=== PATIENT | male | born 1965 | race Caucasian/White ===

== ENCOUNTER 2023-07-14 11:07 | Outpatient (REF) | payer SELFPAY | END 2023-07-14 11:08 | disposition home or self-care (01) | LOC: CF 11:07 | PROVIDERS: Visit Provider Internal Medicine Pulmonary Disease | DX: Z13.89 Encounter for screening for other disorder (principal) ==

== ENCOUNTER 2023-08-10 08:54 | Outpatient (AMB) | payer OTHER, SELFPAY ==
--- NOTE | 2023-08-10 09:04 | MHC.OFFVIS ---
Intake Vital Signs 08/10/23 09:08 Height 6 ft 2 in Weight 206 lb 2.115 oz BMI 26.5 BP 130/70 Blood Pressure Location Rt brachial Position Sitting Pulse 65 Pulse Source Pulse Oximeter Pulse Oximetry (%) 97 Oxygen Delivery Method Room Air Intake Visit Reasons: Shortness of breath Paper Testing Supervisor: Paper Testing Supervisor offered & declined Accompanied by: Self / Same As Patient Allergies No Known Allergies Allergy (Verified 08/10/23 09:13) Medication List - Last Reconciled 08/10/23 by Kenya Wade LPN albuterol sulfate 90 mcg/actuation 2 puffs inhalation Q4-6H PRN HPI Shortness of breath HPI Details Wil is a pleasant 58 year old male, never smoker, with underlying chronic sinusitis and anxiety. [facility]. He reports dyspnea at rest as well as exertion that has been progressively worsening since being in the [employer].He served from [id number]. He also reports intermittent cough, at times productive with clear sputum. He denieschest tightness or wheezing. He has trialed albuterol in the past with suboptimal relief. PCP sent for chest CT which noted mild parenchymal scarring of apices, RML, RLL and lingula, report below. No recent PFT. He reportedly had echo which was normal per referral. Patient notes follow up stress test and nuclear stress test were abnormal, awaiting referral to [facility]. He denies any BLE edema, orthopnea or PND. He is awaiting sleep study, ordered by urologist. He was in the [employer] x 4 years, with multiple unknown exposures, and was stationed at [employer]. 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 He denies any pertinent family history. He denies any seasonal allergies. COUNTS INCLUDE 234 BEDS AT THE [facility] Social History (Updated 08/10/23 @ 09:14 by Kenya Wade LPN) Patient Tobacco Use Status: Never used Tobacco Review of Systems Const Denies chills, Denies excessive sweating, Denies fever(s), Denies headache(s) and Denies night sweats Eyes Denies dry eyes, Denies irritation and Denies itchy eyes ENT Reports Normal hearing present, Denies headache(s), Denies nasal discharge, Denies post nasal drip and Denies sore throat Card Denies chest pain, Denies chest pain at rest, Denies chest pain with activity, Denies claudication, Denies leg edema, Denies orthopnea and Denies paroxysmal nocturnal dyspnea Resp Denies chest congestion, Reports cough, Denies excessive phlegm production, Denies pain on inspiration, Denies pain with cough, Denies stridor and Denies wheezing Musc Denies myalgias Neuro Reports Normal hearing present and Denies headache(s) Endo Denies excessive sweating Jt/Lymph Denies lymphadenopathy Aller/Immun Denies itchy eyes, Denies seasonal rhinorrhea and Denies wheezing Physical Exam Vital Signs: Last Vital Signs Pulse 65 08/10/23 09:08 BP 130/70 08/10/23 09:08 Pulse Ox 97 08/10/23 09:08 Oxygen Delivery Method Room Air 08/10/23 09:08 BMI result Body Mass Index 26.5 Const General: cooperative, healthy appearing, comfortable, no acute distress, well developed and alert Orientation/consciousness: patient oriented x3 Limitations: no limitations HEENT Head: Yes normal to inspection, Yes normocephalic and Yes atraumatic Ears: hearing grossly normal bilaterally and external ears normal Eyes General: appearance normal, both eyes and all related structures Eyelids: Yes eyelids normal Sclerae: sclerae normal EOM: EOMs intact bilaterally Neck Neck: Yes normal visual inspection and Yes no lymphadenopathy Lymphatic: no lymphadenopathy noted Chest Chest palpation & inspection: normal inspection of the chest Resp Effort & Inspection: normal respiratory effort, able to speak in complete sentences, no audible wheezes, no cough, no stridor, not tachypneic, no tripod positioning and no use of accessory muscles Auscultation: clear to auscultation bilaterally Cardio Jugular venous distension: no JVD Rate: regular rate Rhythm: regular rhythm Skin Other: warm, dry General skin exam: no rashes or lesions noted Neuro General: patient oriented x3 Cranial nerves: Yes Normal hearing present Cognition (Neuro): normal cognition Gait exam (Neuro): Normal gait present Extrem General: Yes normal to inspection, Yes capillary refill normal, Yes no clubbing, cyanosis or edema and Yes no pedal edema Psych Appearance: grossly normal and well kempt Speech and movement: Normal speech and movement present and Clear speech present Affect: normal affect Attitude: cooperative Thought process: Normal thought process present Thought content: Normal thought content present Insight: Good insight present (Psych) Judgement: Good judgement present (Psych) Office Procedures 6 Minute Walk Time:: 09:36 SPO2 % at rest: 97 Pulse at rest: 70 SPO2 % during excercise: 96 Pulse during excercise: 88 SPO2 % after excercise: 98 Pulse after excercise: 80 Distance in yards walked: 1,000 Leanne Score: 4 Performance Observations:: Patient walked unassisted on level ground and moderate pace without difficulty. Maintained O2 saturation of 96% or greater with a pulse rate of 84-88 during the entirety of the 6 minutes. Patient did not require supplemental O2. [id number] - 6 Minute Walk Results Reviewed Results Reviewed: Assessment & Plan Assessment & Plan (1) Dyspnea on exertion: Code(s): R06.09 - Other forms of dyspnea Plan Wil presents for evaluation of progressively worsening dyspnea, with or without exertion as well as intermittent cough. It is likely symptoms are related to cardiac contribution, given his reportedly abnormal nuclear stress test. Will attempt to obtain records. However, will send for PFT to evaluate for any obstructive or restrictive defect. CT reviewed which revealed mild parenchymal scarring otherwise no significant abnormalities. 6MWT performed and patient does not require supplemental oxygen at this time. Discussed empirically trialing an inhaler, will hold off until PFT results. All questions were answered and patient is in agreement of plan. Will follow up to review PFT results. Orders: Orders PFT pulmonary function test Today R06.09 - Other forms of dyspnea AMB 6 minute walk Today R06.09 - Other forms of dyspnea Coding Level of Care Code New Pt Level 3 (16107) Diagnoses Dyspnea on exertion R06. CPT Codes Coding ([id number])
[2023-08-10 09:08] VITALS: BP 130/70; PULSE 65; O2SAT 97; BMI 26.5
[2023-08-10 10:13] VITALS: PULSE 70; O2SAT 97
== END 2023-08-10 09:43 | disposition home or self-care (01) ==
PROVIDERS: Visit Provider Nurse Practitioner Family
DX: R06.09 Other forms of dyspnea (principal)
CPT/HCPCS: 94618; 99203

== ENCOUNTER → 2023-08-10 08:54 | Outpatient (BNVA) | payer OTHER, SELFPAY | PROVIDERS: Visit Provider Nurse Practitioner Family | DX: R06.02 Shortness of breath (principal); R06.09 Other forms of dyspnea; J32.9 Chronic sinusitis, unspecified | CPT/HCPCS: 94618; 99202 ==

== ENCOUNTER 2023-09-08 08:45 | Outpatient (REF) | payer OTHER, SELFPAY ==
[2023-09-08 07:56] VITALS: PULSE 66; RESP 16; O2SAT 98
--- NOTE | 2023-09-08 11:35 | PFT_ITS ---
Flows: FEV1: 88 % of predicted at 3.61 L FVC: 79 % of predicted at 4.22 L FEV1/FVC: 86 % Bronchodilator response: Absent Volumes: Total lung capacity: 80 % of predicted at 6.59 L Residual volume: 93 % of predicted at 2.31 L Slow vital capacity: 74 % of predicted at 4.27 L Expiratory reserve volume: 78 % of predicted at 1.28 L Diffusion capacity: Normal Impression: No obstructive or restrictive ventilatory defect. No bronchodilator response. Essentially normal pulmonary function test. MTDD
== END 2023-09-08 08:46 | disposition home or self-care (01) ==
LOC: HO.RESP 08:45
PROVIDERS: PCP Physician Assistant Medical; Visit Provider Nurse Practitioner Family
DX: R06.09 Other forms of dyspnea (principal)
CPT/HCPCS: 94010; 94640; 94727; 94729

== ENCOUNTER → 2023-09-08 11:35 | Outpatient (BNV) | payer OTHER, SELFPAY | PROVIDERS: PCP Physician Assistant Medical; Visit Provider Internal Medicine Pulmonary Disease | DX: R06.09 Other forms of dyspnea (principal) | CPT/HCPCS: 94060; 94727; 94729 ==

== ENCOUNTER 2023-09-21 08:21 | Outpatient (AMB) | payer OTHER, SELFPAY ==
--- NOTE | 2023-09-21 08:24 | A.OFFVIS_ITS ---
Vital Signs 09/21/23 08:25 Height 6 ft 2 in Weight 202 lb 13.204 oz BMI 26.0 Intake Visit Reasons: shortness of breath Allergies No Known Allergies Allergy (Verified 08/10/23 09:13) [facility] Social History (Updated 08/10/23 @ 09:14 by Kenya Wade LPN) Patient Tobacco Use Status: Never used Tobacco Coding
--- NOTE | 2023-09-21 08:24 | MHC.OFFVIS ---
Vital Signs 09/21/23 08:25 Height 6 ft 2 in Weight 202 lb 13.204 oz BMI 26.0 BP 138/76 Blood Pressure Location Rt brachial Position Sitting Pulse 78 Pulse Source Pulse Oximeter Pulse Oximetry (%) 99 Oxygen Delivery Method Room Air Intake Visit Reasons: shortness of breath Allergies No Known Allergies Allergy (Verified 09/21/23 08:31) HPI HPI shortness of breath: Details: Wil is a pleasant 58 year old male, never smoker, with underlying chronic sinusitis and anxiety. He was in the [employer] x 4 years, with multiple unknown exposures, and was stationed at [employer]. Since the last visit, he underwent a cardiac catheterization that was reportedly unremarkable, despite abnormal stress test. He was also sent for PFT and presents to review results today. He continues to report chest tightness with exertion, dry cough and dyspnea on minimal exertion. He has used his albuterol infrequently but reports good relief of symptoms for a short period of time after each use. [facility] Social History Patient Tobacco Use Status: Never used Tobacco Review of Systems Const Denies chills, Denies excessive sweating, Denies fever(s), Denies headache(s) and Denies night sweats Eyes Denies dry eyes, Denies irritation and Denies itchy eyes ENT Reports Normal hearing present, Denies headache(s) and Denies sore throat Card Denies chest pain, Denies chest pain at rest, Denies chest pain with activity, Denies claudication, Denies leg edema, Denies orthopnea and Denies paroxysmal nocturnal dyspnea Resp Denies chest congestion, Reports cough, Denies excessive phlegm production, Denies pain on inspiration, Denies pain with cough, Denies stridor and Denies wheezing Musc Denies myalgias Neuro Reports Normal hearing present and Denies headache(s) Endo Denies excessive sweating Jt/Lymph Denies lymphadenopathy Aller/Immun Denies itchy eyes and Denies wheezing Physical Exam Vital Signs: Last Vital Signs Pulse 78 09/21/23 08:25 BP 138/76 09/21/23 08:25 Pulse Ox 99 09/21/23 08:25 Oxygen Delivery Method Room Air 09/21/23 08:25 BMI result Body Mass Index 26.0 Const General: cooperative, healthy appearing, comfortable, no acute distress, well developed and alert Orientation/consciousness: patient oriented x3 Limitations: no limitations HEENT Head: Yes normal to inspection, Yes normocephalic and Yes atraumatic Ears: hearing grossly normal bilaterally and external ears normal Eyes General: appearance normal, both eyes and all related structures Eyelids: Yes eyelids normal Sclerae: sclerae normal EOM: EOMs intact bilaterally Neck Neck: Yes normal visual inspection and Yes no lymphadenopathy Lymphatic: no lymphadenopathy noted Chest Chest palpation & inspection: normal inspection of the chest Resp Other: dry cough noted Effort & Inspection: normal respiratory effort, able to speak in complete sentences, no audible wheezes, no stridor, not tachypneic, no tripod positioning and no use of accessory muscles Auscultation: clear to auscultation bilaterally Cardio Jugular venous distension: no JVD Rate: regular rate Rhythm: regular rhythm Skin Other: warm, dry General skin exam: no rashes or lesions noted Neuro General: patient oriented x3 Cranial nerves: Yes Normal hearing present Cognition (Neuro): normal cognition Gait exam (Neuro): Normal gait present Extrem General: Yes normal to inspection, Yes capillary refill normal, Yes no clubbing, cyanosis or edema and Yes no pedal edema Psych Appearance: grossly normal and well kempt Speech and movement: Normal speech and movement present and Clear speech present Affect: normal affect Attitude: cooperative Thought process: Normal thought process present Thought content: Normal thought content present Insight: Good insight present (Psych) Judgement: Good judgement present (Psych) Assessment & Plan Assessment & Plan (1) Dyspnea on exertion: Code(s): R06.09 - Other forms of dyspnea Category: Medical (2) Cough: Code(s): R05.9 - Cough, unspecified Category: Medical Plan Reviewed PFT which revealed no obstructive or restrictive ventilatory defect. No bronchodilator response. Lung volumes and DLCO normal. Patient interested in methacholine challenge as PFT essentially normal and he continues with dyspnea on exertion, dry cough and chest tightness. Will schedule this and follow up to review results. We discussed empirically trialing a daily inhaler, ipratropium nasal spray or sending for allergy testing, but patient would like to defer at this time. All questions were answered and patient is in agreement of plan. Will follow up to review methacholine challenge results. He is aware to call if he would like to trial an inhaler. Orders: Orders RT pft w methacholine Today R05.9 - Cough, unspecified, R06.09 - Other forms of dyspnea Coding Level of Care Code Est Pt Level 4 (03850) Diagnoses Dyspnea on exertion R06.09 Cough R05.9
[2023-09-21 08:25] VITALS: BP 138/76; PULSE 78; O2SAT 99; BMI 26.0
== END 2023-09-21 08:47 | disposition home or self-care (01) ==
PROVIDERS: PCP Physician Assistant Medical; Visit Provider Nurse Practitioner Family
DX: R06.09 Other forms of dyspnea (principal); R05.9 Cough, unspecified
CPT/HCPCS: 99214

== ENCOUNTER → 2023-09-21 08:21 | Outpatient (BNVA) | payer OTHER, SELFPAY | PROVIDERS: PCP Physician Assistant Medical; Visit Provider Nurse Practitioner Family | DX: R06.09 Other forms of dyspnea (principal); R05.9 Cough, unspecified | CPT/HCPCS: 99212 ==